=== PATIENT | male | born 1985 | race Caucasian/White ===

== ENCOUNTER 2017-12-09 11:57 | Observation (INO) | payer SELFPAY ==
[~2017-12-09] VITALS: Ht 180.3 cm; Wt 89.0 kg
[2017-12-09] MEDS ORDERED: PIPER-TAZ 3.375 GM 50 ML IV STA (12:07)
[2017-12-09] MEDS ORDERED: HYDROCODONE/APAP 7.5MG-325MG 1 EA TAB PO STA (12:08)
[2017-12-09 12:38] LABS: BASOPHILS # (AUTO) 0.1 (0.0-0.1); BASOPHILS % 0.8 % (0.0-1.0); EOSINOPHILS # (AUTO) 0.3 (0.0-0.4); EOSINOPHILS % 2.6 % (0.0-6.0); HEMATOCRIT 43.8 % (38.2-49.6); HEMOGLOBIN 15.2 g/dL (14.0-18.0); LYMPHOCYTES % 18.4 % (18.0-39.1); MEAN CORPUSCULAR HEMOGLOBIN 30.5 pg (28-32); MEAN CORPUSCULAR HGB CONC 34.7 g/dL (31-35); MONOCYTES # (AUTO) 1.1 (0.2-0.8); MONOCYTES % 10.2 % (4.4-11.3); NEUTROPHILS # (AUTO) 7.1 (2.1-6.9); NEUTROPHILS % 67.3 % (38.7-80.0); PLATELET COUNT 294 x10e3/uL (140-360); RED BLOOD COUNT 4.98 x10e6/uL (4.3-5.7); RED CELL DISTRIBUTION WIDTH 12.1 % (11.7-14.4)
--- NOTE | 2017-12-09 13:00 | Diagnostic Imaging Report ---
Exam: Right Hand Radiographs (three views) History: Dog bite Comparison: <None.> Findings: Soft tissue edema is seen overlying the second metacarpal head/thenar eminence without evidence of radiopaque foreign body or bony destructive change. No evidence of fracture or malalignment. Impression: Soft tissue edema overlying the second metacarpal head/thenar eminence without radiographic evidence of foreign body or osteomyelitis. Signed by: Dr. Belem Brooks MD on 12/09/2017 12:56 PM
[2017-12-09 13:40] LABS: ANION GAP 12.7 mmol/L (8-16); CARBON DIOXIDE 31 mmol/L (22-32); CHLORIDE 99 mmol/L (101-111); POTASSIUM 3.7 mmol/L (3.6-5.1); SODIUM 139 mmol/L (136-144)
[2017-12-09 13:41] LABS: BLOOD UREA NITROGEN 11 mg/dL (8-26)
[2017-12-09 13:42] LABS: BUN/CREATININE RATIO 10 (6-25); CREATININE, SERUM 1.1 mg/dL (0.9-1.3); EST GLOMERULAR FILTRATION RATE > 60 ML/MIN (60-); GLUCOSE 83 mg/dL (74-118)
[2017-12-09] MEDS ORDERED: MORPHINE SULFATE 2 MG/ML SYR IV PRN (14:15)
[2017-12-09 14:32] LABS: CALCIUM 9.5 mg/dL (8.4-10.2)
[2017-12-09] MEDS: MORPHINE SULFATE INJ 4 MG/ML INJ IV PRN ×2 (15:45→20:17)
[2017-12-09] MEDS ORDERED: HYDROMORPHONE 2MG/ML 2 MG/ML ML IV ONE (15:45)
[2017-12-09] MEDS: VANCOMYCIN 1GM/NS 250 ML 250 ML IV SCH (15:47)
[2017-12-09] MEDS ORDERED: MUPIROCIN 2% OINT 22 GM TUBE ONE (16:42)
[2017-12-09] MEDS ORDERED: BUPIVACAINE HCL 0.5% INJ 30 ML VIAL INJ ONE (16:42)
[2017-12-09] MEDS ORDERED: FENTANYL CITRATE/PF 100MCG/2 ML INJ ONE ×2 (18:24→19:30)
[2017-12-09] MEDS ORDERED: ADDERALL 20 MG20 MG (18:48)
[2017-12-09] MEDS: PIPER-TAZ 3.375 GM 50 ML IV SCH (19:01)
[2017-12-09] MEDS ORDERED: SEVOFLURANE INHAL SOLN 250 ML PEN BTL ONE (19:13)
[2017-12-09] MEDS ORDERED: PROPOFOL IV EMULSION 10 MG/ML 20 ML VIAL ONE (19:13)
[2017-12-09] MEDS ORDERED: DEXAMETHASONE SOD PHOS INJ 4 MG/ML VIAL ONE (19:13)
[2017-12-09] MEDS ORDERED: LIDOCAINE HCL 2% LOCAL INJ 5 ML SDV VIAL INJ ONE (19:13)
[2017-12-09] MEDS ORDERED: ONDANSETRON HCL INJ 2 MG/ML VIAL ONE (19:13)
[2017-12-09] MEDS ORDERED: KETOROLAC TROMETHAMINE 30 MG/ML VIAL ONE (19:13)
[2017-12-09] MEDS ORDERED: MIDAZOLAM HCL 2 MG/2 ML VIAL ONE (19:30)
[2017-12-09 20:00] VITALS: BP 134/89
[2017-12-09] MEDS ORDERED: ACETAMINOPHEN/CODEINE 300MG - 30MG TAB PO PRN (23:15)
[2017-12-10] VITALS: BP 122/72
[2017-12-10] MEDS: PIPER-TAZ 3.375 GM 50 ML IV SCH ×3 (00:12→11:38)
[2017-12-10] MEDS: MORPHINE SULFATE INJ 4 MG/ML INJ IV PRN ×4 (00:14→15:34)
[2017-12-10] MEDS: VANCOMYCIN 1GM/NS 250 ML 250 ML IV SCH ×2 (03:00→15:00)
[2017-12-10 03:39] LABS: BASOPHILS % 0.4 % (0.0-1.0); HEMATOCRIT 40.5 % (38.2-49.6); LYMPHOCYTES # (AUTO) 0.8 (1.0-3.2); LYMPHOCYTES % 7.5 % (18.0-39.1); MEAN CORPUSCULAR HEMOGLOBIN 30.3 pg (28-32); MEAN CORPUSCULAR HGB CONC 34.6 g/dL (31-35); MEAN CORPUSCULAR VOLUME 87.7 fL (81-99); MONOCYTES # (AUTO) 0.8 (0.2-0.8); MONOCYTES % 7.5 % (4.4-11.3); NEUTROPHILS # (AUTO) 8.5 (2.1-6.9); NEUTROPHILS % 84.3 % (38.7-80.0); PLATELET COUNT 276 x10e3/uL (140-360); RED BLOOD COUNT 4.62 x10e6/uL (4.3-5.7); RED CELL DISTRIBUTION WIDTH 12.1 % (11.7-14.4)
[2017-12-10 03:58] LABS: ANION GAP 14.4 mmol/L (8-16); BLOOD UREA NITROGEN 10 mg/dL (7-26); BUN/CREATININE RATIO 12 (6-25); CALCIUM 9.3 mg/dL (8.4-10.2); CARBON DIOXIDE 24 mmol/L (22-29); CHLORIDE 105 mmol/L (98-107); CREATININE, SERUM 0.83 mg/dL (0.72-1.25); EST GLOMERULAR FILTRATION RATE > 60 ML/MIN (60-); GLUCOSE 136 mg/dL (74-118); MAGNESIUM 2.3 MG/DL (1.3-2.1); POTASSIUM 4.4 mmol/L (3.5-5.1); SODIUM 139 mmol/L (136-145)
[2017-12-10 04:00] VITALS: BP 118/64
[2017-12-10 08:33] VITALS: BP 109/71
[2017-12-10] MEDS ORDERED: MUPIROCIN 2% OINT 22 GM TUBE TOP ONE (09:00)
--- NOTE | 2017-12-10 09:22 | Operative Report ---
DATE OF PROCEDURE: December 09, 2017 PREOPERATIVE DIAGNOSIS: Dog bite, right hand. POSTOPERATIVE DIAGNOSIS: Extensor tenosynovitis, right dorsal hand. PROCEDURES 1. Exploration of penetrating injury. 2. Extensor tenosynovectomy, right hand. ANESTHESIA: General. HISTORY: The patient is a 32-year-old right-hand dominant male who was seen in the ER several hours earlier. He states that he sustained a dog bite from his domestic pet last night around midnight. The hand over the course of the evening and the early day swelled. He noticed marked tenderness and warmth of the right hand. Emergency room radiographs were obtained and showed no acute fracture. However, there is significant concern because of purulent drainage coming from the bite. The risks, benefits and alternatives of treatment were discussed with the patient. He is prepared to undergo the procedures outlined. DETAILS OF PROCEDURE: Patient was marked preoperatively in the holding area. He was brought to the operating theater. After the induction of adequate general anesthesia, he was prepped and draped in the supine position. A time out was performed. Because of the presence of infection, the right upper extremity was elevated for 3-4 minutes, and then a tourniquet was inflated to a pressure of 250 mmHg. A curvilinear incision was marked out about the right index finger both proximal and distal to the MPJ where the puncture wound dislocated. The incision was made through the skin and subcutaneous tissues. Purulent exudate was encountered. This was cultured for both aerobic and anaerobic studies. At this point, the skin flaps were elevated off of the extensor tendon mechanism. The extent of the injury was appreciated. The injury extends to the radial side of the extensor lundberg just proximal to the MPJ. The area was opened bluntly and then copious amounts of lavage is performed with antibiotic containing solution until the effluent was then clear. At this point, inspection reveals no entrance of the wound into the joint capsule. The wound is then packed with 0.5-inch gauze. Then the skin was approximated loosely with 5-0 nylon in an interrupted horizontal mattress fashion over the packing. The tourniquet was deflated. The fingers pinked up. The wound was noted to be hemostatic. A sterile bulking conforming bandage were applied. A fiberglass splint was fashioned and maintained the wrist in a modest amount of extension. The MPs at 60-70 degrees of flexion and the IPs neutral and held in place with a loosely wrapped Nikolas wrap. Patient tolerated the procedure well. Was brought to the recovery room and then he was transferred to his hospital bed for further care and treatment. Job#: [id number] NONA
--- NOTE | 2017-12-10 10:03 | Consultation ---
DATE OF CONSULTATION: December 09, 2017 PHYSICIAN REQUESTING CONSULTATION: Dr. Mateo Smith from the emergency room. CHIEF COMPLAINT: Dog bite, right hand. HISTORY OF PRESENT ILLNESS: The patient is a 32-year-old, [id number] male who comes to the ER today stating that he was bit by his dog late last night. He states that over the course of the evening and the early part of today, the hand continued to swell. It became quite painful, especially with movement of the fingers. PAST MEDICAL HISTORY: Negative for any significant cardiovascular disease. PAST SURGICAL HISTORY: Notable for fracture of the hip requiring internal screws. ALLERGIES: HE DENIES ANY MEDICATION ALLERGIES. MEDICATIONS: He denies taking any prescription medications on a regular basis. PHYSICAL EXAMINATION: He is afebrile, and the vital signs are stable. Pertinent physical exam shows significant swelling of the right hand, especially centered around the dorsum and the level of the MPJs. There is a small eschar just proximal to the right index finger MPJ with purulent exudate draining from it. There is a moderate amount of erythema. Passive range of motion elicits extreme pain from the patient. Radiographs show no acute bony injury. IMPRESSION: Dog bite, right hand, probable extensor tenosynovitis purulent. PLAN: The patient needs to be taken to the OR for urgent decompression and exploration. The patient has eaten recently prior to his visit to the ER, so anesthesia is requesting that the patient wait 4 to 6 hours for his stomach to empty prior to the initiation of general anesthesia. Job#: [id number]
[2017-12-10 11:51] VITALS: BP 112/56
[2017-12-10 13:03] VITALS: BP 112/56
[2017-12-10 16:00] VITALS: BP 138/78
[2017-12-10] MEDS ORDERED: BACTRIM DS TAB1 EACH PO (16:11)
[2017-12-10] MEDS ORDERED: ACETAMINOPHEN-1 EAC4 PO (16:11)
[2017-12-10] MEDS ORDERED: CIPRO500 MG PO (16:11)
--- NOTE | 2017-12-10 17:05 | History and Physical ---
SHORTSTAY SUMMARY DATE OF DISCHARGE: 12/10/2017. PRIMARY CARE PROVIDER: Dr. Rojelio Billy ADMITTING DIAGNOSES 1. Dog bite that is infected. 2. Status post incision and drainage of a dog bite. 3. Attention deficit disorder. DISCHARGE DIAGNOSES 1. Dog bite that is infected. 2. Status post incision and drainage of a dog bite. 3. Attention deficit disorder. BRIEF HISTORY: Mr. Mena is a 32-year-old gentleman who was bitten by a dog on his right hand, a significant injury with swelling and erythema, and it appeared infected. The bite occurred a couple of days prior to his presentation. Patient was taken to the OR by hand surgery, who did I and D. The patient was taken from the ER and is now postop and doing well. REVIEW OF SYSTEMS: He denied fever, chills or weight loss. He denied sinus congestion or sore throat. He denied chest pain or palpitations. He denied shortness breath, wheezing or cough. He denied abdominal pain, nausea or vomiting. He denied bleeding or bruising. He denied rash or pruritus. He did have the swelling, erythema and drainage on the right hand. He denied joint pain or swelling. He denied headache, vertigo or loss of consciousness. He denied depression, agitation, homicidal or suicidal ideation. PAST MEDICAL HISTORY: Significant for attention deficit disorder for which he takes Adderall. He also has had an open reduction and internal fixation with screws of the left hip that happened while he was in the service. MEDICATIONS: He takes no chronic medications. ALLERGIES: NO KNOWN DRUG ALLERGIES. FAMILY HISTORY: Unremarkable. SOCIAL HISTORY: The patient is . Croatian is his primary language. He does not smoke, drink or use illegal drugs. He is generally independently functioning. PHYSICAL EXAMINATION PSYCHIATRIC: He is alert and oriented times 3 with normal mood and affect. CONSTITUTIONAL: He has a normal body habitus. He is in no acute distress. VITAL SIGNS: Blood pressure 112/56. Pulse 77 and regular. Respiratory rate 18. O2 sat 97% on room air. Temperature 96.4. HEENT: Head is atraumatic. His eyes are anicteric with clear conjunctivae. Ears and nares are without erythema or discharge. Oropharynx is clear. NECK: Supple with no mass or thyromegaly. LYMPHATIC SYSTEM: He has no palpable cervical, axillary or inguinal adenopathy. CARDIOVASCULAR: His heart has a regular rate and rhythm without murmur or extra heart sound. He has no carotid bruit. He has no peripheral edema. Palpable dorsal and pedal pulses. RESPIRATORY: Lungs are clear to auscultation and percussion with normal respiratory effort. GASTROINTESTINAL: His abdomen is soft without organomegaly, masses or tenderness. He has normal bowel sounds present. CUTANEOUS: Skin is warm and dry to touch. MUSCULOSKELETAL: His joints are in normal alignment without erythema or swelling. He has a surgical wound dressing on the right status post I and D of the dog bite on the right hand. NEUROLOGIC: Exam is nonfocal with intact cranial nerves and no motor or sensory deficits. DIAGNOSTIC STUDIES: His CBC showed a white count of 10.1 with 84% neutrophils. Hemoglobin 14.0; hematocrit 40.5; platelet count 276,000. Chemistry showed normal electrolytes, CO2 24, creatinine 0.83, BUN 10. Glucose 136. IMPRESSION AND PLAN: Dog bite status post incision and drainage by hand surgery. The patient has been cleared by surgery for discharge home. He will be sent home on p.o. antibiotics and Bactroban ointment for local wound care. HOSPITAL COURSE: The patient was taken to the OR from the ER for I and D of a dog bite, right hand. The next day the dressing was changed by the plastic surgeon who said it was okay for him to go home, to use Bactroban for local wound care, and was given p.o. antibiotics and pain medicine for the patient to take until he can follow up with the hand surgeon and his regular primary care provider within 2 weeks. Job#: [id number]
--- OUTSIDE RECORDS SUMMARY | 2017-12-16 12:25 | XMS REPORT ---
Author Author [facility] Address Unknown Phone Unavailable Care Team Providers Care Golf Course Assistant Name Role Phone Abner GILL Unavailable Unavailable Problems This patient has no known problems. Allergies, Adverse Reactions, Alerts This patient has no known allergies or adverse reactions. Medications This patient has no known medications. 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 No evidence of fracture or malalignment. Impression: Soft tissue edema overlying the second metacarpal head/thenar eminence without radiographic evidence of foreign body or osteomyelitis. Signed by: Dr. Urmila Shirley MD on 12/09/2017 12:56 PM Dictated By: URMILA SHIRLEY MD [id number] Transcribed By: SLOANE on 12/09/17 1256 COPY TO: APURVA GARBER NP
== END 2017-12-10 16:44 | disposition home or self-care (01) ==
LOC: ER 11:57 → ERHOLD 14:14 → PACU V 16:55 → IMCU 18:31
PROVIDERS: ADMIT Internal Medicine; ATTEND Internal Medicine
DX: S61.250A Open bite of right index finger without damage to nail, initial encounter (principal); L03.113 Cellulitis of right upper limb; W54.0XXA Bitten by dog, initial encounter; Y93.89 Activity, other specified; F98.8 Other specified behavioral and emotional disorders with onset usually occurring in childhood and adolescence; S63.690A Other sprain of right index finger, initial encounter; B95.62 Methicillin resistant Staphylococcus aureus infection as the cause of diseases classified elsewhere
CPT/HCPCS: 26020; 36415 ×2; 73130; 80048 ×2; 83605; 83735; 85025 ×2; 87040; 87071; 87186; 87205; 99284; G0378 ×2; J1100; J1170; J1885; J2001; J2250; J2270 ×2; J2405; J2543 ×2; J3370 ×2